=== PATIENT | female | born 1955 | race Asian ===

== ENCOUNTER 2018-04-02 21:00 | Emergency (ER) | payer OTHER ==
[~2018-04-02] VITALS: Ht 167.6 cm; Wt 52.3 kg
[~2018-04-02 21:00] MED LIST: NOCURR
[2018-04-02 21:58] VITALS: BP 143/81
[2018-04-02] MEDS ORDERED: LIDOCAINE 1% 10 ML VIAL INJ ONE (22:15)
== END 2018-04-02 22:48 | disposition home or self-care (01) ==
LOC: EMS 21:02
DX: S01.01XA Laceration without foreign body of scalp, initial encounter (principal); F17.210 Nicotine dependence, cigarettes, uncomplicated; F11.90 Opioid use, unspecified, uncomplicated; W01.0XXA Fall on same level from slipping, tripping and stumbling without subsequent striking against object, initial encounter; Y93.89 Activity, other specified; Y92.098 Other place in other non-institutional residence as the place of occurrence of the external cause; Y99.8 Other external cause status
CPT/HCPCS: 12001; 70450

== ENCOUNTER 2021-01-23 23:52 | Emergency (ER) | payer OTHER ==
[~2021-01-23] VITALS: Ht 167.6 cm; Wt 68.2 kg
[2021-01-24] MEDS ORDERED: HYDROCODONE/ACETAMINOPHEN 5-325 MG TABLET PO ONE (00:30)
[2021-01-24 02:14] VITALS: BP 126/57
== END 2021-01-24 02:30 | disposition home or self-care (01) ==
LOC: EMS 23:53
DX: S20.211A Contusion of right front wall of thorax, initial encounter (principal); F17.210 Nicotine dependence, cigarettes, uncomplicated; F11.90 Opioid use, unspecified, uncomplicated; F19.90 Other psychoactive substance use, unspecified, uncomplicated; W01.0XXA Fall on same level from slipping, tripping and stumbling without subsequent striking against object, initial encounter; Y93.01 Activity, walking, marching and hiking; Y92.89 Other specified places as the place of occurrence of the external cause; Y99.8 Other external cause status
CPT/HCPCS: 71101; 99283

== ENCOUNTER 2024-02-07 11:38 | Inpatient (IN) | payer MEDICAID, OTHER ==
[~2024-02-07] VITALS: Ht 149.9 cm; Wt 45.5 kg
[2024-02-07 14:09] LABS: BASOPHILS % (AUTO) 1.7 % (0.0-2.0); EOSINOPHILS % (AUTO) 2.4 % (1.0-6.0); HEMATOCRIT 32.1 % (36-46); HEMOGLOBIN 10.5 g/dL (12.0-16.0); LYMPHOCYTES # (AUTO) 1.5 K/uL (1.0-4.8); LYMPHOCYTES % (AUTO) 21.8 % (22.0-44.0); MEAN CORPUSCULAR HEMOGLOBIN 24.7 pg (26.0-34.0); MEAN CORPUSCULAR HGB CONC 32.8 G/dL (31.0-37.0); MEAN CORPUSCULAR VOLUME 75 fL (80-100); MONOCYTES # (AUTO) 0.5 K/uL (0.1-1.0); MONOCYTES % (AUTO) 6.7 % (2.0-9.0); NEUTROPHILS # (AUTO) 4.6 K/uL (1.8-7.7); NEUTROPHILS % (AUTO) 67.4 % (40.0-70.0); PLATELET COUNT (AUTO) 231 K/uL (150-450); RED BLOOD CELL COUNT(AUTO) 4.25 MIL/uL (4.00-5.20); RED CELL DISTRIBUTION WIDTH 16.3 % (11.5-14.5); WHITE BLOOD COUNT (AUTO) 6.8 K/uL (4.5-11.0)
[2024-02-07] MEDS: SODIUM CHLORIDE 0.9% 1,000 ML IV ONE (14:09)
[2024-02-07 14:13] LABS: ANION GAP 3 mmol/L (8-16); CALCIUM, TOTAL 7.8 mg/dL (8.8-10.5); CARBON DIOXIDE 31 mmol/L (22-29); CHLORIDE 99 mmol/L (98-107); CREATININE 0.62 mg/dL (0.60-1.30); GLOMERULAR FILTR. RATE CALC > 60 mL/min (>60); GLUCOSE,RANDOM 83 mg/dL (70-110); POTASSIUM 3.4 mmol/L (3.5-5.1); SODIUM SERUM 133 mmol/L (136-145); UREA NITROGEN, BLOOD 12 mg/dL (7-18)
[2024-02-07 14:18] LABS: CREATINE KINASE, TOTAL ONLY 47 U/L (26-192)
[2024-02-07 14:21] LABS: TROPONIN I-HIGH SENSITIVITY 50 ng/L (<51)
[2024-02-07 14:24] LABS: LACTIC ACID 0.9 mmol/L (0.4-2.0)
[2024-02-07 14:35] LABS: B-TYPE NATRIURETIC PEPTIDE 176 pg/mL (0-100)
[2024-02-07 14:35] LABS: APPEARANCE,URINE HAZY (CLEAR); BILIRUBIN,URINE NEGATIVE (NEGATIVE); COLOR,URINE YELLOW (YELLOW); GLUCOSE, URINE (UA) NEGATIVE (NEGATIVE); KETONES,URINE NEGATIVE (NEGATIVE); LEUKOCYTE ESTERASE ,URINE SMALL (NEGATIVE); NITRATE,URINE NEGATIVE (NEGATIVE); OCCULT BLOOD,URINE SMALL (NEGATIVE); PH,URINE 5.5 (5.0-8.0); PROTEIN,URINE 30-70 mg/dL (NEGATIVE); SPECIFIC GRAVITIY, URINE 1.013 (1.003-1.030)
[2024-02-07 14:36] LABS: D-DIMER 4.91 mg/L FEU (0.00-0.50); PROTHROMBIN TIME 11.2 SEC (9.4-11.6)
[2024-02-07] MEDS ORDERED: IOHEXOL 300 MG/ML 100 ML VIAL ONE (14:39)
[2024-02-07] MEDS ORDERED: SODIUM CHLORIDE 0.9% 100 ML ONE (14:39)
[2024-02-07] MEDS ORDERED: 0.9% SODIUM CHLORIDE 10 ML SYRINGE IVP ONE (14:39)
[2024-02-07 14:53] LABS: RBC MORPHOLOGY COMMENT ABNORMAL RBC MORPH
[2024-02-07 15:15] LABS: BACTERIA,URINE Many /HPF (None Seen); SQUAMOUS EPITHELIAL CELL,UR Few /LPF (None Seen)
[2024-02-07] MEDS: PIPERACILLIN/TAZO 3.375 GM/D5W 50 ML IV ONE (15:53)
[2024-02-07] MEDS: VANCOMYCIN 1GM/WATER(PEG/NADA) 200 ML IV ONE (15:53)
[2024-02-07] MEDS ORDERED: ONDANSETRON HCL 4 MG/2 ML VIAL IVP PRN (18:45)
[2024-02-07] MEDS: VANCOMYCIN 500 MG/WATER(PEG) 100 ML IV ONE (19:28)
[2024-02-07 21:20] VITALS: BP 108/62; PULSE 73; RESP 18; TEMP 97.7; O2SAT 96
[2024-02-07] MEDS ORDERED: SODIUM CHLORIDE 0.9% 500 ML IV ONE (22:55)
[2024-02-07] MEDS: HEPARIN SODIUM,PORCINE 5,000 UNITS/ML VIAL SQ SCH (23:38)
[2024-02-07] MEDS: CefTRIAXone 1 GM/DEXTROSE 50 ML IV SCH (23:40)
[2024-02-08 04:12] VITALS: BP 106/59; PULSE 87; RESP 18; TEMP 97.9; O2SAT 97
[2024-02-08 07:39] LABS: BASOPHILS % (AUTO) 3.4 % (0.0-2.0); EOSINOPHILS % (AUTO) 3.3 % (1.0-6.0); HEMATOCRIT 28.9 % (36-46); HEMOGLOBIN 9.5 g/dL (12.0-16.0); LYMPHOCYTES # (AUTO) 1.4 K/uL (1.0-4.8); LYMPHOCYTES % (AUTO) 23.8 % (22.0-44.0); MEAN CORPUSCULAR HEMOGLOBIN 24.7 pg (26.0-34.0); MEAN CORPUSCULAR HGB CONC 32.8 G/dL (31.0-37.0); MEAN CORPUSCULAR VOLUME 75 fL (80-100); MONOCYTES # (AUTO) 0.4 K/uL (0.1-1.0); MONOCYTES % (AUTO) 6.2 % (2.0-9.0); NEUTROPHILS # (AUTO) 3.8 K/uL (1.8-7.7); NEUTROPHILS % (AUTO) 63.3 % (40.0-70.0); PLATELET COUNT (AUTO) 209 K/uL (150-450); RED BLOOD CELL COUNT(AUTO) 3.83 MIL/uL (4.00-5.20); RED CELL DISTRIBUTION WIDTH 16.6 % (11.5-14.5)
[2024-02-08 07:44] LABS: ANION GAP 3 mmol/L (8-16); CALCIUM, TOTAL 7.7 mg/dL (8.8-10.5); CARBON DIOXIDE 30 mmol/L (22-29); CHLORIDE 106 mmol/L (98-107); CREATININE 0.69 mg/dL (0.60-1.30); GLOMERULAR FILTR. RATE CALC > 60 mL/min (>60); GLUCOSE,RANDOM 84 mg/dL (70-110); POTASSIUM 3.6 mmol/L (3.5-5.1); SODIUM SERUM 139 mmol/L (136-145); UREA NITROGEN, BLOOD 10 mg/dL (7-18)
[2024-02-08 07:59] VITALS: BP 98/64; PULSE 83; RESP 19; TEMP 97.9; O2SAT 98
[2024-02-08] MEDS ORDERED: VANCOMYCIN HCL 750 MG in DEXTROSE 5%-WATER 250 ML IV SCH (08:00)
[2024-02-08] MEDS: VANCOMYCIN 750 MG/WATER(PEG) 150 ML IV SCH (08:32)
[2024-02-08 16:50] VITALS: BP 133/71; PULSE 63; RESP 18; TEMP 98.7; O2SAT 96
[2024-02-08 19:42] VITALS: BP 116/48; PULSE 87; RESP 18; TEMP 97.7; O2SAT 99
[2024-02-09 03:36] VITALS: BP 114/72; PULSE 90; RESP 18; TEMP 98.2; O2SAT 97
[2024-02-09 07:09] LABS: ANION GAP 3 mmol/L (8-16); CALCIUM, TOTAL 7.1 mg/dL (8.8-10.5); CARBON DIOXIDE 31 mmol/L (22-29); CHLORIDE 104 mmol/L (98-107); CREATININE 0.79 mg/dL (0.60-1.30); GLOMERULAR FILTR. RATE CALC > 60 mL/min (>60); GLUCOSE,RANDOM 90 mg/dL (70-110); POTASSIUM 3.8 mmol/L (3.5-5.1); SODIUM SERUM 138 mmol/L (136-145); UREA NITROGEN, BLOOD 14 mg/dL (7-18)
[2024-02-09 07:32] VITALS: BP 106/56; PULSE 83; RESP 18; TEMP 98.6; O2SAT 97
[2024-02-09 07:43] LABS: VANCOMYCIN,RANDOM 17.4 mcg/mL (25.0-50.0)
[2024-02-09 15:43] VITALS: BP 119/69; PULSE 78; RESP 18; TEMP 97.9; O2SAT 99
[2024-02-09 19:40] VITALS: BP 99/57; PULSE 104; RESP 18; TEMP 98.8; O2SAT 97
[2024-02-10 04:00] VITALS: BP 121/59; PULSE 80; RESP 18; TEMP 98.6; O2SAT 99
[2024-02-10 07:45] LABS: ANION GAP 3 mmol/L (8-16); CALCIUM, TOTAL 7.4 mg/dL (8.8-10.5); CARBON DIOXIDE 31 mmol/L (22-29); CHLORIDE 102 mmol/L (98-107); CREATININE 0.73 mg/dL (0.60-1.30); GLOMERULAR FILTR. RATE CALC > 60 mL/min (>60); GLUCOSE,RANDOM 89 mg/dL (70-110); POTASSIUM 3.9 mmol/L (3.5-5.1); SODIUM SERUM 136 mmol/L (136-145); UREA NITROGEN, BLOOD 14 mg/dL (7-18)
[2024-02-10 08:47] VITALS: BP 120/71; PULSE 83; RESP 18; TEMP 98.5; O2SAT 99
[2024-02-10 15:50] VITALS: BP 133/65; PULSE 66; RESP 18; TEMP 97.9; O2SAT 98
[2024-02-10 19:12] VITALS: BP 136/72; PULSE 74; RESP 18; TEMP 98.8; O2SAT 99
[2024-02-11 03:58] VITALS: BP 100/65; PULSE 78; RESP 19; TEMP 98.7; O2SAT 98
[2024-02-11 06:59] LABS: ANION GAP 3 mmol/L (8-16); CALCIUM, TOTAL 7.4 mg/dL (8.8-10.5); CARBON DIOXIDE 29 mmol/L (22-29); CHLORIDE 102 mmol/L (98-107); CREATININE 0.73 mg/dL (0.60-1.30); GLOMERULAR FILTR. RATE CALC > 60 mL/min (>60); GLUCOSE,RANDOM 77 mg/dL (70-110); POTASSIUM 3.8 mmol/L (3.5-5.1); SODIUM SERUM 134 mmol/L (136-145); UREA NITROGEN, BLOOD 15 mg/dL (7-18)
[2024-02-11 07:23] VITALS: BP 108/51; PULSE 71; RESP 18; TEMP 97.7; O2SAT 95
[2024-02-11 15:33] VITALS: BP 121/66; PULSE 69; RESP 18; TEMP 97.8; O2SAT 99
== END 2024-02-11 17:35 | disposition left against medical advice (07) | DRG 383 ==
LOC: EMS 11:38 → EDH 18:46 → 6S 21:13 → 4E 02-08 18:35 → 6S 02-08 18:36
PROVIDERS: ADMIT Hospitalist; ATTEND Hospitalist
PROC: 0J9K3ZZ Drainage of Left Hand Subcutaneous Tissue and Fascia, Percutaneous Approach (ICD-10-PCS; principal; 2024-02-07)
DX: L03.116 Cellulitis of left lower limb (principal); L89.153 Pressure ulcer of sacral region, stage 3; E87.1 Hypo-osmolality and hyponatremia; D64.9 Anemia, unspecified; E87.6 Hypokalemia; L02.414 Cutaneous abscess of left upper limb; N39.0 Urinary tract infection, site not specified; F15.10 Other stimulant abuse, uncomplicated; Z53.29 Procedure and treatment not carried out because of patient's decision for other reasons; Z59.00 Homelessness unspecified; Z91.199 Patient's noncompliance with other medical treatment and regimen due to unspecified reason; Z87.891 Personal history of nicotine dependence
CPT/HCPCS: 71045; 73701; 80048; 80202; 81001; 82550; 83605; 83735; 83880; 84145; 84484; 85025; 85379; 85610; 85730; 87040; 87070; 87077; 87086; 87186; 87205; 93005; 99285; J0696; J1644; J2543; J7030; J7040; J7050; Q9967; 36415-L1; 36415-TC